=== PATIENT | male | born 1950 | race African-American/Black ===

== ENCOUNTER → 2017-01-10 | Outpatient (CLI) | payer MEDICARE, OTHER ==
--- NOTE | 2017-01-10 11:54 | PCVCIMAG ---
APPROVED REPORT Study performed: 01/10/2017 10:42:28 EXAM: Comprehensive 2D, Doppler, and color-flow Echocardiogram Status: routine Other Information Study Quality: Good Indications Abnormal ECG Chest Pain 2D Dimensions LVEF(%): 60.54 (>50%) IVSd: 10.61 (7-11mm) LVDd: 45.52 mm PWd: 11.40 (7-11mm)Ascending Ao: 38.83 (22-36mm) LVDs: 30.85 (25-40mm) Left Atrium: 42.06 (27-40mm) Aortic Root: 38.28 mm LV Single Plane 4CH: 59.82 % LV Single Plane 2CH: 52.17 %Manuel's LVEF: 55.99 % Biplane EF: 55.7 % Volumes Left Atrial Volume (Systole) Single Plane 4CH: 60.68 mLSingle Plane 2CH: 56.20 mL LA ESV Index: 26.00 mL/m2 Aortic Valve AoV Peak Ainl.: 1.20 m/s AO Peak Gr.: 5.74 mmHgLVOT Max P.33 mmHg LVOT Max V: 0.76 m/s Mitral Valve E/A Ratio: 0.7 MV Decel. Time: 304.74 ms MV E Max Anil.: 0.48 m/s MV A Anil.: 0.68 m/s IVRT: 145.33 ms TDI E/Lateral E': 4.40E/Medial E': 11.00 Pulmonary Valve PV Peak Anil.: 0.73 m/sPV Peak Gr.: 2.11 mmHg Pulmonary Vein P Vein S: 0.32 m/sP Vein A: 0.69 m/s P Vein D: 0.42 m/sP Vein A Dur.: 141.9 msec P Vein S/D Ratio: 0.76 Tricuspid Valve TR Peak Anil.: 2.34 m/s TR Peak Gr.: 21.90 mmHg Left Ventricle The left ventricle is normal size. There is normal LV segmental wall motion. There is normal left ventricular wall thickness. Left ventricular systolic function is normal. The left ventricular ejection fraction is within the normal range. LVEF is 55-60%. Grade I - abnormal relaxation pattern. Right Ventricle The right ventricle is normal size. The right ventricular systolic function is normal. Atria Left atrium is mildly dilated. The right atrium size is normal. Aortic Valve The aortic valve is normal in structure. No aortic regurgitation is present. There is no aortic valvular stenosis. Mitral Valve The mitral valve is normal in structure. Mild mitral regurgitation. No evidence of mitral valve stenosis. Tricuspid Valve The tricuspid valve is normal in structure. Mild tricuspid regurgitation with PAP of 29 mmHg. Pulmonic Valve The pulmonary valve is normal in structure. Mild pulmonic regurgitation. Great Vessels The aortic root is upper limits of normal in size. IVC is normal in size and collapses with >50% inspiration Pericardium There is no pericardial effusion. <Conclusion> The left ventricle is normal size. Left ventricular systolic function is normal. Grade I - abnormal relaxation pattern. The right ventricle is normal size. Left atrium is mildly dilated. The aortic valve is normal in structure. Mild mitral regurgitation. Mild tricuspid regurgitation with PAP of 29 mmHg.
--- NOTE | 2017-01-10 11:57 | PCVCIMAG ---
APPROVED REPORT Exam: Stress Echocardiogram Indication: Chest pain, ABN EKG Stress Nurse: Remedios Simons RN Status: routine HR: 72 bpm Rhythm: NSR Procedure The patient underwent an Exercise Stress Test using the Salazar Protocol. Blood pressure, heart rate, and EKG were monitored. An Echocardiogram was performed by upstream biomanufacturing technician in four stages in quad fashion. At peak stress, four selected images were obtained and placed side by side with resting images for comparison. Stress Test Details Stress Test: Exercise stress testing was performed using a Salazar protocol. HR Resting HR: 72 bpmMax Heart Rate (APMHR): 153 bpm Max HR Achieved: 146 bpmTarget HR (85% APMHR): 130 bpm % of APMHR: 95 Recovery HR: 86 bpm HR response to stress: Normal HR response to stress BP Resting BP: 126/82 mmHg Max BP: 168/80 mmHg Recovery BP: 126/68 mmHg ECG Resting ECG: Sinus Rhythm with PVCs Stress ECG: Sinus Rhythm ST Change: Non-ischemic Arrhythmia: None Recovery ECG: Sinus Rhythm Clinical Reason for Termination: Maximal effort Exercise duration: 8 min 59 sec Exercise capacity: 10.1 METs Overall Exercise Capacity for Age: Good Scale: Active Pre-Stress Echo The resting Echocardiogram showed normal left ventricular contractility with an estimated Ejection Fraction of about >55%. Normal wall motion in all segments on baseline images. Post-Stress Echo The stress Echocardiogram showed normal left ventricular contractility with an estimated Ejection Fraction of about 60-65%. Normal augmentation of wall motion in all segments on post stress images. Clinical No clinical or ECG evidence for ischemia. Conclusion Clinical Response: Non-ischemic Exercise Capacity: Average Stress ECG Response: Non-ischemic Stress Echo Images: Non-ischemic No prior study available for comparison.
== END | disposition home or self-care (01) ==
LOC: PCVCIMAG 10:32
PROVIDERS: ATTEND Internal Medicine Cardiovascular Disease
DX: R07.89 Other chest pain (principal); I10 Essential (primary) hypertension; E78.00 Pure hypercholesterolemia, unspecified
CPT/HCPCS: 93306; 93351; G0463